=== PATIENT | male | born 1970 | race Caucasian/White ===

== ENCOUNTER 2020-09-14 10:19 | Outpatient (CLI) | payer OTHER, SELFPAY ==
--- NOTE | 2020-09-14 10:29 | CT_ITS ---
WS: [id number] CT ABDOMEN WITH CONTRAST HISTORY: ABDOMINAL PAIN, LUQ Contiguous single phase 5 mm axial imaging performed to the abdomen. Oral contrast has been provided. Coronal and sagittal reformats are submitted. All CT scans at [facility] use at least on e of these dose optimization techniques: automated exposure control; mA and/or kV adjustment per melissa ent size (includes targeted exams where dose is matched to clinical indication); or iterative reconst ruction. CONTRAST: Omnipaque 300; 95 mL IV. DLP: 943.93 mGycm COMPARISON: None available. Lower thorax: Unremarkable. Liver: Normal. No intrahepatic dilatation. Gallbladder: Slightly contracted with numerous stones in the gallbladder lumen. No adjacent inflammat ion. No bile duct dilatation. Pancreas: Normal. Spleen: Normal. Adrenals: Normal. Right kidney: Normal size kidney. Exophytic cyst measuring 10 mm from the mid medial kidney. No obstr uction. Left kidney: Normal. Aorta: Normal. GI tract: Normal. No adenopathy or free fluid. Abdominal wall: No hernia. Visualized osseous structures: Mild facet joint arthritis at L4-5 and L5-S1. CT/CT abdomen w con* [id number] IMPRESSION: 1. Cholelithiasis without acute cholecystitis. 2. No acute abdomen abnormality identified.
[2020-09-14] MEDS: iohexol 300 mg/mL 50 mL Btl PO (11:04)
[2020-09-14] MEDS: iohexol 300 mg/mL 100 mL Btl IV (11:17)
== END 2020-09-14 10:20 | disposition home or self-care (01) ==
LOC: RADWPI 10:29
PROVIDERS: Visit Provider Family Medicine
DX: R10.12 Left upper quadrant pain (principal); K80.20 Calculus of gallbladder without cholecystitis without obstruction
CPT/HCPCS: 74160; Q9967

== ENCOUNTER 2020-12-24 09:25 | Emergency (ER) | payer OTHER, SELFPAY ==
[2020-12-24 09:29] VITALS: BP 113/79; PULSE 98; RESP 18; TEMP 38.6; O2SAT 96; BMI 29.5
--- NOTE | 2020-12-24 09:55 | CT_ITS ---
WS: [id number] CT ABDOMEN AND PELVIS WITH CONTRAST HISTORY: Chronic LEFT abdominal pain with nausea and diarrhea. Fever. TECHNIQUE: Imaging performed of the abdomen and pelvis with IV contrast. Single phase imaging of the abdomen. Coronal and sagittal reformats are submitted. All CT scans at [facility] use at least one of these dose optimization techniques: automated exposure control; mA and/or kV adjustment per patient size (includes targeted exams where dose is matched to clinical indication); or iterativ e reconstruction. IV CONTRAST: Omnipaque 300; 95 mL IV. Oral contrast: No DLP: 1751.33 mGy.cm COMPARISON: 09/14/2020 Lower thorax: Lung bases are clear. Heart is normal size. Small hiatal hernia. Liver/biliary system: There is mild prominence of the liver. No mass or bile duct dilatation. There i s mild diffuse hepatic steatosis. Gallbladder: Normally distended gallbladder with multiple stones. No wall thickening or hyperemia. Pancreas: Normal size pancreas and pancreatic duct. No adjacent inflammation. Spleen: Mildly enlarged spleen measuring 14.1 cm in length. No mass identified. Adrenal glands: Normal. Right kidney: Normal size kidney. Exophytic 12 mm cyst from the posterior mid kidney. No hydronephros is or solid mass. Left kidney: Normal. Aorta: Normal. Lymphadenopathy: None. Free fluid: None. GI tract: The appendix is normal. There is no small bowel obstruction. There is very slight increased amount of fluid within the small bowel. There is mild diffuse wall thickening involving the colon. M ost significant wall thickening is in the ascending and transverse colon to the splenic flexure. Ther e is additional mild thickening continuing into the descending colon. There is no obstructive pattern . There is mild hyperemia especially within the transverse colon extending over a long segment. No si gnificant diverticular disease. Abdominal wall: Unremarkable abdominal wall. No hernia. Pelvis: No free fluid or adenopathy within the pelvis. Patent inguinal canals bilaterally. Bones: Unremarkable. CT/CT abdomen pelvis w con* [id number] IMPRESSION: 1. Long segment area of colonic wall thickening. Greatest inflammation and wal l thickening involving the transverse colon. Findings are most consistent with acute colitis. Recommend follow-up with colonoscopy after acute episode resolve s in colonoscopy has not been recently performed. There was no mass identified on a recent CT from 09/14/2020 involving the colon. 2. Normal appendix. 3. No ascites or free air. 4. Cholelithiasis without acute cholecystitis.
[2020-12-24 10:14] VITALS: O2SAT 95
[2020-12-24 10:31] LABS: Basophils % 0.2 %; Hematocrit 42.1 % (42.0-52.0); Hemoglobin 14.9 g/dL (11.7-16.6); Lymphocytes # 0.5 10^3/uL (0.8-4.8); Lymphocytes % 4.6 %; Mean Corpuscular HGB Conc 35.4 g/dL (30.0-36.0); Mean Corpuscular Hemoglobin 32.3 pg (28.0-34.0); Mean Corpuscular Volume 91.3 fL (80-94); Mean Platelet Volume 9.1 fL (7.4-10.4); Monocytes # 0.6 10^3/uL (0.2-0.9); Monocytes % 5.6 %; Neutrophils # 9.61 10^3/uL (1.8-7.7); Neutrophils % 89.3 %; Nucleated Red Blood Cells % 0 %; Platelet Count 171 10^3/cmm (130-400); Red Blood Count 4.61 10^6/uL (4.1-5.3); Red Cell Distribution Width 11.6 % (12.1-15.1); White Blood Count 10.8 10^3/uL (4.0-10.0)
--- NOTE | 2020-12-24 10:45 | W.ED.ABDPA2 ---
HPI - Abdominal Pain General: Chief Complaint: Abdominal Pain Stated Complaint: PAIN ON L. SIDE Time Seen by Provider: 12/24/20 09:50 History of Present Illness: HPI narrative: 50-year-old male presents emergency room with complaint of severe left upper quadrant pain. Is very positional. He seen Dr. Argueta in the past was put on Pepcid and Carafate he ran out of those and now the pain has been recurring. He denies any shortness of breath he has had a bit of a fever reports last few days as high as 1025. He has had a lot of nausea and diarrhea. He is not any hematochezia melena hematemesis or coffee-ground emesis. MD elicited complaint: abdominal pain Pertinent past history: none Onset (ago): month(s) Pain Consistency: colicky Location: LUQ Severity: moderate Quality: cramping Radiation: none Migration to: no migration Exacerbating factors: nothing Relieving factors: nothing Associated Symptoms: Reports anorexia, bloating, GI cramping and diarrhea; Denies belching, change in bowel habits, change in stool character, chills, coffee ground emesis, constipation, dyspepsia, dysuria, excessive flatus, fever(s), heartburn, hematochezia, hematuria, hematemesis, fecal incontinence, loose stools and melena Review of Systems Const: Denies: fever(s) or chills ENMT: Denies: throat pain, ear or mastoid pain, nasal discharge or nasal congestion Card: Denies: chest pain, edema, dyspnea on exertion or orthopnea Resp: Denies: dyspnea, productive cough or non-productive cough GI: Reports: diarrhea, bloating and GI cramping; Denies: hematemesis, coffee ground emesis, heartburn, constipation, belching, excessive flatus, fecal incontinence, change in bowel habits, change in stool character, hematochezia or melena : Denies: dysuria or hematuria Skin/Breast: Denies: rash or pruritus [facility] ED PFSH: Medical History (Updated 12/24/20 @ 12:40 by Dimas Christensen DO) Asthma Cholelithiasis OCD (obsessive compulsive disorder) PTSD (post-traumatic stress disorder) Surgical History (Updated 09/28/20 @ 14:09 by Shankar Argueta MD) History of vasectomy Family History (Updated 09/28/20 @ 14:03 by Mamta Xavier RN) Denies family history of Anesthesia complication Physical Exam Const: COMMON NORMALS: no acute distress GENERAL APPEARANCE: cooperative and comfortable ORIENTATION/CONSCIOUSNESS: Yes awake, Yes oriented to person, Yes oriented to place and Yes oriented to time HENMT: COMMON NORMALS: normocephalic, atraumatic and hearing grossly normal bilaterally HEAD & SCALP: normocephalic and atraumatic Neck/C-Spine: COMMON NORMALS: no JVD Resp: COMMON NORMALS: normal respiratory effort, No retractions, No use of accessory muscles and clear to auscultation bilaterally AUSCULTATION: clear to auscultation bilaterally Cardio: COMMON NORMALS: no JVD, regular rate, regular rhythm and No murmurs present (Cardio) RATE: regular rate RHYTHM: regular rhythm GI: COMMON NORMALS: No hepatosplenomegaly present AUSCULTATION: Yes normoactive bowel sounds PALPATION: Yes Tenderness to palpation present (GI) Details: LUQ, No Guarding due to palpation present (GI) and Yes No hepatosplenomegaly present Extremity: COMMON NORMALS: normal to inspection, capillary refill normal, no clubbing, cyanosis or edema, no calf tenderness and no pedal edema Neuro: SENSORIUM/ORIENTATION: Yes oriented to person, Yes oriented to place and Yes oriented to time Skin: COMMON NORMALS: no rashes or lesions noted GENERAL SKIN EXAM: no rashes or lesions noted Course Vital Signs: Vital signs: Vital Signs Temperature 101.5 F H 12/24/20 09:29 Pulse Rate 82 12/24/20 11:01 Respiratory Rate 18 12/24/20 09:29 Blood Pressure 117/60 12/24/20 11:01 Pulse Oximetry 95 12/24/20 11:01 MDM - Abdominal Pain MDM Narrative: Medical decision making narrative: Reviewed CT tap findings the patient. Was started on Flagyl and Cipro hydrocodone Zofran for symptoms follow-up with primary care within the week will need colonoscopy at some point later date. If worsens return to emergency room Lab Data: Labs: Lab Results 12/24/20 12/24/20 12/24/20 Range/Units 10:24 10:24 10:24 WBC 10.8 H (4.0-10.0) 10^3/ uL RBC 4.61 (4.1-5.3) 10^6/u L Hgb 14.9 (11.7-16.6) g/dL Hct 42.1 (42.0-52.0) % MCV 91.3 (80-94) fL MCH 32.3 (28.0-34.0) pg MCHC 35.4 (30.0-36.0) g/dL RDW 11.6 L (12.1-15.1) % Plt Count 171 (130-400) 10^3/c mm MPV 9.1 (7.4-10.4) fL Neut % (Auto) 89.3 % Lymph % (Auto) 4.6 % [place] % (Auto) 5.6 % Eos % (Auto) 0.0 % Baso % (Auto) 0.2 % Neut # (Auto) 9.61 H (1.8-7.7) 10^3/u L Lymph # (Auto) 0.5 L (0.8-4.8) 10^3/u L [place] # (Auto) 0.6 (0.2-0.9) 10^3/u L Eos # (Auto) 0.0 (0.0-0.8) 10^3/u L Baso # (Auto) 0.0 (0.0-0.1) 10^3/u L Nucleated RBC % (a uto) 0 % Nucleated RBCs # 0.0 /100WBC Sodium 131 L (136-145) mmol/L Potassium 3.6 (3.5-5.1) mmol/L Chloride 98 (98-107) mmol/L Carbon Dioxide 24 (22-29) mmol/L Anion Gap 12.6 (5-19) BUN 12 (6-20) mg/dL Creatinine 0.9 (0.7-1.2) mg/dL GFR Calculation 89.7 L (90-130) mL/min Glucose 120 H (65-115) mg/dL Calculated Osmolal ity 273 L (285-295) mOsm/k g Lactic Acid 2.0 (0.5-2.2) mmol/L Calcium 8.1 L (8.5-10.5) mg/dL Total Bilirubin 0.7 (0.15-1.2) mg/dL AST 18 (0-40) U/L ALT 31 (0-41) U/L Alkaline Phosphata se 84 (40-130) IU/L Total Protein 7.0 (6.6-8.7) g/dL Albumin 4.2 (3.5-5.2) g/dL Globulin 2.8 (1.3-4.6) g/dL Urine Color (Yellow) Urine Appearance (CLEAR) Urine pH (5-7) Ur Specific Gravit y (1.005-1.030) Urine Protein (Negative) Urine Glucose (UA) (Normal) Urine Ketones (Negative) Urine Blood (Negative) Urine Nitrate (Negative) Urine Bilirubin (Negative) Urine Urobilinogen (Negative) mg/dL Ur Leukocyte Shira ase (Negative) Urine RBC (0-2) /hpf Urine WBC (0-5) /hpf Ur Squamous Epith Cells (0-5) /hpf Amorphous Sediment Urine Bacteria (NONE) /hpf Hyaline Casts /lpf Urine Mucus /hpf 12/24/20 Range/Units 10:56 WBC (4.0-10.0) 10^3/ uL RBC (4.1-5.3) 10^6/u L Hgb (11.7-16.6) g/dL Hct (42.0-52.0) % MCV (80-94) fL MCH (28.0-34.0) pg MCHC (30.0-36.0) g/dL RDW (12.1-15.1) % Plt Count (130-400) 10^3/c mm MPV (7.4-10.4) fL Neut % (Auto) % Lymph % (Auto) % [place] % (Auto) % Eos % (Auto) % Baso % (Auto) % Neut # (Auto) (1.8-7.7) 10^3/u L Lymph # (Auto) (0.8-4.8) 10^3/u L [place] # (Auto) (0.2-0.9) 10^3/u L Eos # (Auto) (0.0-0.8) 10^3/u L Baso # (Auto) (0.0-0.1) 10^3/u L Nucleated RBC % (a uto) % Nucleated RBCs # /100WBC Sodium (136-145) mmol/L Potassium (3.5-5.1) mmol/L Chloride (98-107) mmol/L Carbon Dioxide (22-29) mmol/L Anion Gap (5-19) BUN (6-20) mg/dL Creatinine (0.7-1.2) mg/dL GFR Calculation (90-130) mL/min Glucose (65-115) mg/dL Calculated Osmolal ity (285-295) mOsm/k g Lactic Acid (0.5-2.2) mmol/L Calcium (8.5-10.5) mg/dL Total Bilirubin (0.15-1.2) mg/dL AST (0-40) U/L ALT (0-41) U/L Alkaline Phosphata se (40-130) IU/L Total Protein (6.6-8.7) g/dL Albumin (3.5-5.2) g/dL Globulin (1.3-4.6) g/dL Urine Color Dark yellow (Yellow) Urine Appearance Clear (CLEAR) Urine pH 5 (5-7) Ur Specific Gravit y 1.020 (1.005-1.030) Urine Protein Trace (Negative) Urine Glucose (UA) Norm (Normal) Urine Ketones 1+ H (Negative) Urine Blood 3+ H (Negative) Urine Nitrate Negative (Negative) Urine Bilirubin 1+ H (Negative) Urine Urobilinogen 1 H (Negative) mg/dL Ur Leukocyte Shira ase Negative (Negative) Urine RBC 0-4 H (0-2) /hpf Urine WBC 0-4 H (0-5) /hpf Ur Squamous Epith Cells 0-4 H (0-5) /hpf Amorphous Sediment Not Reportable Urine Bacteria 2+ H (NONE) /hpf Hyaline Casts 0-4 H /lpf Urine Mucus 3+ /hpf Discharge Plan Discharge Patient Disposition: Home Clinical Impression: Colitis Condition: Stable Prescriptions: New hydrocodone-acetaminophen 5-325 mg tablet 1 tab PO Q6H PRN (Reason: pain) Qty: 20 RF: 0 Zofran 4 mg tablet 4 mg PO Q6H PRN (Reason: nausea and vomiting) Qty: 20 RF: 0 Flagyl 500 mg tablet 500 mg PO Q6H Qty: 30 RF: 0 ciprofloxacin HCl 500 mg tablet 500 mg PO BID Qty: 20 RF: 0 No Action B Complex Plus Vitamin C 63-85-23-5-300 mg capsule 1 cap PO DAILY RF: 0 pyridoxine (vitamin B6) 200 mg tablet extended release 400 mg PO DAILY RF: 0 cetirizine 10 mg tablet 10 mg PO DAILY RF: 0 cholecalciferol (vitamin D3) 50 mcg (2,000 unit) capsule 50 mcg PO DAILY RF: 0 montelukast 10 mg tablet 10 mg PO DAILY RF: 0 albuterol sulfate 90 mcg/actuation HFA aerosol inhaler 2 puff inhalation Q6H PRNRF: 0 pantoprazole [Protonix] 40 mg tablet,delayed release (DR/EC) 40 mg PO BID 14 Days Qty: 28 RF: 0 sucralfate [Carafate] 1 gram tablet 1 g PO Q6H 14 Days Qty: 56 RF: 0 Discharge Orders: Discharge ED (Routine); Ordered 12/27/20 Ordered By: Dimas Christensen Referrals: [facility] [Primary Care Provider] - Patient Instructions: Opioid Safety Coding Level of Care Code ED [employer]chand[employer] Presentation Associate for Chg Fwd Exam Comprehensive
[2020-12-24 10:49] LABS: Alanine Aminotransferase 31 U/L (0-41); Albumin Level 4.2 g/dL (3.5-5.2); Alkaline Phosphatase 84 IU/L (40-130); Anion Gap 12.6 (5-19); Aspartate Amino Transferase 18 U/L (0-40); Blood Urea Nitrogen 12 mg/dL (6-20); Calcium 8.1 mg/dL (8.5-10.5); Carbon Dioxide 24 mmol/L (22-29); Chloride 98 mmol/L (98-107); Globulin 2.8 g/dL (1.3-4.6); Glomerular Filtration Rate 89.7 mL/min (90-130); Glucose 120 mg/dL (65-115); Osmolality Calculated 273 mOsm/kg (285-295); Potassium 3.6 mmol/L (3.5-5.1); Sodium 131 mmol/L (136-145); Total Bilirubin 0.7 mg/dL (0.15-1.2)
[2020-12-24] MEDS: ondansetron 2 mg/ML SDV 2 mL 4 MG IVP (10:57)
[2020-12-24] MEDS: morphine 4 mg/mL SDV 1 mL IVP (10:58)
[2020-12-24] MEDS: sodium chloride 0.9% 1,000 ML 999 ML IV (10:58)
[2020-12-24 11:01] VITALS: BP 117/60; PULSE 82; O2SAT 95
[2020-12-24 11:07] LABS: Add Urine Microscopic? YES; Bilirubin Urine 1+ (Negative); Blood Urine 3+ (Negative); Glucose Urine UA Norm (Normal); Ketones Urine 1+ (Negative); Leukocyte Esterase Urine Negative (Negative); Nitrate Urine Negative (Negative); Protein Urine Trace (Negative); Urine Appearance Clear (CLEAR); Urine Color Dark Yellow (Yellow); Urobilinogen Urine 1 mg/dL (Negative); pH Urine 5 (5-7)
[2020-12-24 11:16] LABS: Bacteria Urine 2+ /hpf; Mucus Urine 3+ /hpf; Squamous Epithelial Cell Urine 0-4 /hpf (0-5)
[2020-12-24 11:17] LABS: Add Urine Culture? No; Hyaline Casts Urine 0-4 /lpf; RBC Urine 0-4 /hpf (0-2); WBC Urine 0-4 /hpf (0-5)
[2020-12-24] MEDS: iohexol 300 mg/mL 100 mL Btl IV (11:22)
== END 2020-12-24 13:23 | disposition home or self-care (01) ==
PROVIDERS: Emergency Provider Family Medicine
DX: K52.9 Noninfective gastroenteritis and colitis, unspecified (principal)
CPT/HCPCS: 74177; 80053; 81001; 83605; 85025; 96361; 96374; 96375; 99284; J2270; J2405; J7030; Q9967

== ENCOUNTER → 2021-08-29 09:33 | Outpatient (BNVA) | payer OTHER, SELFPAY | PROVIDERS: Visit Provider Surgery | DX: Z20.822 Contact with and (suspected) exposure to COVID-19 (principal); Z01.812 Encounter for preprocedural laboratory examination | CPT/HCPCS: 87635 ==

== ENCOUNTER 2021-09-02 07:05 | Day surgery (SDC) | payer OTHER, SELFPAY ==
[2021-08-30 10:44] VITALS: BMI 31.9
--- NOTE | 2021-09-02 07:22 | ANES.PREANE2 ---
Pre-Anesthetic Assessment Pre-Anesthetic Assessment: Height/Weight: Height 1.88 m Weight 112.945 kg Preop Diagnosis: diagnostic Proposed Procedure: Operation Date: 09/02/21 08:30 Proposed Procedures p EGD/Colon 68224 R10.12(Not Applicable) - Shankar Argueta MD s Colonoscopy 90353 Z12.11(Not Applicable) - Shankar Argueta MD Familial anesthetic complications: none Was Beta Kenisha taken within 24 hours: N/A Was Clonidine taken within 24 hours: N/A Last intake: > 8hrs Social: Social History: Tobacco and No alcohol Exam: Pre-Anes Outpt Exam: alert, oriented x 3, clear to auscultation bilaterally and regular rate & rhythm Airway: MP: 2 Dentition: Other (missing) Pulmonary: Pulmonary: Asthma GI: GI: GERD Neuropsych: Comments: PTSD - requests be present upon emergence Anesthetic Plan: ASA status: 2 Anesthesia: MAC Risk of > 500 ml blood loss (7ml/kg in children): No PFSH Anesthesia PFSH: Medical History Asthma Cholelithiasis OCD (obsessive compulsive disorder) PTSD (post-traumatic stress disorder) Surgical History History of vasectomy Family History Denies family history of Anesthesia complication Social History Smoking and tobacco status: current every day smoker Data Anesthesia Cardiac Studies: No Data to Display
[2021-09-02 07:39] VITALS: BP 121/85; PULSE 62; RESP 18; TEMP 35.9; O2SAT 98
[2021-09-02] MEDS: sodium chloride 0.9% 1,000 ML 30 ML IV (07:53)
--- NOTE | 2021-09-02 08:11 | W.PM.OPSFHP ---
Same Day Surgery H&P Indication for Procedure/HPI DATE OF PROCEDURE: September 02, 2021 CHIEF COMPLAINT/INDICATIONFOR SURGICAL PROCEDURE: EGD/colonoscopy PREOP DIAGNOSIS: diagnostic PLANNED PROCEDURE: Operation Date: 09/02/21 08:30 Proposed Procedures p EGD/Colon 68115 R10.12(Not Applicable) - Shankar Argueta MD s Colonoscopy 75200 Z12.11(Not Applicable) - Shankar Argueta MD Medications/Allergies* Home Medications Medication Instructions Recorded Confirmed Type albuterol sulfate 90 mcg/actuation 2 puff INHALATION Q6H PRN 09/28/20 08/30/21 History aerosol inhaler cetirizine 10 mg tablet 10 mg PO DAILY 09/28/20 08/30/21 History montelukast 10 mg tablet 10 mg PO DAILY 09/28/20 08/30/21 History cholecalciferol (vitamin D3) 10 mcg PO DAILY 08/30/21 08/30/21 History [Vitamin D3] Allergies/Adverse Reactions Allergy/AdvReac Type Severity Reaction Status Date / Time promethazine [From Phenergan] Allergy ADR-Agitate Verified 08/30/21 10:39 d Current Medications: Generic Name Dose Route Start Last Admin Trade Name Freq PRN Reason Stop Dose Admin Sodium Chloride 1,000 mls @ 30 mls/hr 09/02/21 07:15 09/02/21 07:53 Sodium Chloride 0.9% IV 09/03/21 07:14 30 mls/hr .Q24H [place] Administration Pertinent History/Comorbid Conditions* Medical History (Updated 01/01/21 @ 00:01 by ) Asthma Cholelithiasis OCD (obsessive compulsive disorder) PTSD (post-traumatic stress disorder) Surgical History (Updated 09/28/20 @ 14:09 by Shankar Argueta MD) History of vasectomy Family History (Updated 09/28/20 @ 14:03 by Mamta Xavier, JENNIFER) Denies family history of Anesthesia complication Social History Smoking and tobacco status: current every day smoker Pertinent Exam Findings alert, oriented x 3 and regular rate & rhythm Recommendations Surgery/Procedure today Coding Level of Care Code Acute [employer] Product Consultant for Chg Amara
[2021-09-02 09:00] VITALS: BP 103/64; PULSE 69; RESP 16; TEMP 36.1; O2SAT 95
[2021-09-02 09:16] VITALS: BP 104/69; PULSE 72; RESP 18; O2SAT 95
--- NOTE | 2021-09-02 10:26 | ANE.PACU2 ---
Inpatient post-anesthesia follow up: Airway intact: Yes Vital signs: Temperature 97 F Pulse Rate 72 Respiratory Rate 18 Blood Pressure 104/69 Pulse Oximetry 95 Oxygen Delivery Me thod Room Air Oxygen Flow Rate 5 Fraction of Inspir ed Oxygen Hydration adequate: Yes Mental status: Baseline
== END 2021-09-02 10:35 | disposition home or self-care (01) ==
PROVIDERS: Visit Provider Surgery
PROC: 0DJ08ZZ Inspection of Upper Intestinal Tract, Via Natural or Artificial Opening Endoscopic (ICD-10-PCS; CPT 43235; principal; 2021-09-02 08:30)
PROC: 0DJD8ZZ Inspection of Lower Intestinal Tract, Via Natural or Artificial Opening Endoscopic (ICD-10-PCS; CPT 45378; 2021-09-02 08:30)
DX: Z12.11 Encounter for screening for malignant neoplasm of colon (principal); R10.12 Left upper quadrant pain; D12.4 Benign neoplasm of descending colon; D12.5 Benign neoplasm of sigmoid colon; D12.8 Benign neoplasm of rectum; J45.909 Unspecified asthma, uncomplicated; K21.9 Gastro-esophageal reflux disease without esophagitis; F17.210 Nicotine dependence, cigarettes, uncomplicated
CPT/HCPCS: 43239; 45380; 45385; 88305; J2704; J7030